=== PATIENT | female | born 1955 | race Caucasian/White ===

== ENCOUNTER → 2017-04-04 | Outpatient (CLI) | payer OTHER ==
[~2017-04-04] MED LIST: ALPR1 PO; CLON.1 PO; DESMOPRESSIN PO; FAMO20 PO; PROACE100 PO; WARF5 PO; ZOLP10 PO; [UNRECOGNIZED DRUG - REMARK]
== END ==
LOC: LAB 10:00
DX: N39.0 Urinary tract infection, site not specified (principal); R56.9 Unspecified convulsions
CPT/HCPCS: 87086

== ENCOUNTER → 2017-07-24 | Outpatient (CLI) | payer OTHER | LOC: LAB SHORT 10:25 → LAB 10:25 | PROVIDERS: Nurse Practitioner Family | DX: Z01.419 Encounter for gynecological examination (general) (routine) without abnormal findings (principal); N95.2 Postmenopausal atrophic vaginitis; N95.9 Unspecified menopausal and perimenopausal disorder | CPT/HCPCS: 87624; G0145 ==

== ENCOUNTER 2018-05-18 11:45 | Emergency (ER) | payer BC, MEDICARE ==
[~2018-05-18] VITALS: Ht 157.5 cm; Wt 48.5 kg
[2018-05-18] MEDS ORDERED: HYDCHL25 PO (12:56)
[2018-05-18] MEDS ORDERED: DIVA500ER PO (12:56)
[2018-05-18] MEDS ORDERED: WARF2 PO (12:56)
== END 2018-05-18 13:12 | disposition home or self-care (01) ==
LOC: ER 11:45
DX: S09.90XA Unspecified injury of head, initial encounter (principal); W19.XXXA Unspecified fall, initial encounter; Z88.8 Allergy status to other drugs, medicaments and biological substances; Z79.899 Other long term (current) drug therapy; Z79.01 Long term (current) use of anticoagulants; Z86.73 Personal history of transient ischemic attack (TIA), and cerebral infarction without residual deficits
CPT/HCPCS: 70450; 99284-25

== ENCOUNTER 2018-08-28 20:09 | Emergency (ER) | payer MEDICARE ==
[~2018-08-28] VITALS: Ht 154.9 cm; Wt 45.4 kg
[~2018-08-28 20:09] MED LIST changes: +DIVA500ER PO; +HYDCHL25 PO; +WARF2 PO
[2018-08-28] MEDS ORDERED: Prednisone20 MG PO (20:36)
[2018-08-28] MEDS ORDERED: CEPH500 PO (20:50)
== END 2018-08-28 20:45 | disposition home or self-care (01) ==
LOC: ER 20:09
DX: S50.362A Insect bite (nonvenomous) of left elbow, initial encounter (principal); W57.XXXA Bitten or stung by nonvenomous insect and other nonvenomous arthropods, initial encounter; L23.89 Allergic contact dermatitis due to other agents; Z91.018 Allergy to other foods; Z79.899 Other long term (current) drug therapy; Z79.01 Long term (current) use of anticoagulants; Z86.73 Personal history of transient ischemic attack (TIA), and cerebral infarction without residual deficits
CPT/HCPCS: 99281; J7512; Q0163

== ENCOUNTER → 2019-10-19 | Outpatient (CLI) | payer MEDICARE ==
[~2019-10-19] MED LIST changes: +CEPH500 PO; +Prednisone20 MG PO
== END ==
LOC: LAB SHORT 12:16 → LAB 12:16
DX: I10 Essential (primary) hypertension (principal)
CPT/HCPCS: 82043

== ENCOUNTER 2019-11-19 15:39 | Emergency (ER) | payer MEDICARE ==
[~2019-11-19] VITALS: Ht 157.5 cm; Wt 47.6 kg
[2019-11-19 16:28] LABS: Valproic Acid 108.5 ug/mL (50.0-100.0)
[2019-11-19 20:30] LABS: Source, Urine Clean Catch
[2019-11-19 20:34] LABS: Appearance, Urine Clear (Clear); Bilirubin, Urine Neg (Neg); Blood, Urine 1+ (Neg); Color, Urine Yellow (P-Yellow); Glucose Qualitative, Urine Neg (Neg); Ketones, Urine 1+ (Neg); Leukocyte Esterase, Urine Neg (Neg); Nitrite, Urine Neg (Neg); Protein, Urine Neg (Neg); Specific Gravity, Urine 1.015 (1.003-1.022); Urobilinogen, Urine NORM (Normal); pH, Urine 6.5 (5.0-8.0)
[2019-11-19 20:45] LABS: Calcium, Ionized (POC) 1.06 mmol/L (1.10-1.46); Chloride (POC) 100 mmol/L (98-108); Glucose (ISTAT POC) 111 mg/dL (70-99); Hemoglobin (POC) 10.5 g/dL (12.0-16.0); Potassium (POC) 3.7 mmol/L (3.5-5.5); Sodium (POC) 135 mmol/L (135-148); Total CO2 (POC) 24 mmol/L (21-32)
[2019-11-19 20:46] LABS: Bacteria Rare /hpf; Red Blood Cells, Urine 0-2 /hpf (0-2); Squamous Epithelial Cells Not Seen /hpf (Few); White Blood Cells, Urine 0-2 /hpf (0-5)
== END 2019-11-19 21:32 | disposition home or self-care (01) ==
LOC: ER 15:39
PROVIDERS: Emergency Medicine; Physician Assistant
DX: R56.9 Unspecified convulsions (principal); Z86.73 Personal history of transient ischemic attack (TIA), and cerebral infarction without residual deficits; Z79.01 Long term (current) use of anticoagulants; Z79.899 Other long term (current) drug therapy; Z79.52 Long term (current) use of systemic steroids; Z91.018 Allergy to other foods
CPT/HCPCS: 36415; 73030; 80047; 80164; 81001; 85014; 99284-25

== ENCOUNTER 2019-11-22 18:50 | Emergency (ER) | payer MEDICARE ==
[~2019-11-22] VITALS: Ht 154.9 cm; Wt 47.6 kg
== END 2019-11-22 21:57 | disposition home or self-care (01) ==
LOC: ER 18:50
DX: S00.03XA Contusion of scalp, initial encounter (principal); Z79.01 Long term (current) use of anticoagulants; Z79.52 Long term (current) use of systemic steroids; Z88.8 Allergy status to other drugs, medicaments and biological substances; Z86.73 Personal history of transient ischemic attack (TIA), and cerebral infarction without residual deficits; Z91.018 Allergy to other foods; Z86.718 Personal history of other venous thrombosis and embolism; W19.XXXA Unspecified fall, initial encounter
CPT/HCPCS: 70450; 99283-25

== ENCOUNTER 2020-08-20 11:11 | Inpatient (IN) | payer MEDICARE ==
[~2020-08-20] VITALS: Ht 165.1 cm; Wt 61.2 kg
[2020-08-20 12:13] LABS: BASOPHILS ABSOLUTE AUTO 0.02 K/mm3 (0.00-0.23); BASOPHILS PERCENT AUTO 1 % (0-2); EOSINOPHILS ABSOLUTE AUTO 0.13 K/mm3 (0.00-0.68); EOSINOPHILS PERCENT AUTO 4 % (0-6); Hematocrit 31.7 % (33.0-51.0); Hemoglobin 10.6 g/dL (11.5-16.0); IMMATURE GRAN ABSOLUTE AUTO 0.02 K/mm3 (0.00-0.10); IMMATURE GRAN PERCENT AUTO 1 % (0-1); LYMPHOCYTES ABSOLUTE AUTO 0.72 K/mm3 (0.84-5.20); LYMPHOCYTES PERCENT AUTO 20 % (21-46); MONOCYTES ABSOLUTE AUTO 0.44 K/mm3 (0.16-1.47); MONOCYTES PERCENT AUTO 12 % (4-13); Mean Corpuscular HGB 31.5 pg (26.0-34.0); Mean Corpuscular HGB Conc 33.4 g/dL (31.5-36.5); Mean Corpuscular Volume 94 fL (80-100); Mean Platelet Volume 10.6 fL (9.1-12.4); NEUTROPHILS ABSOLUTE AUTO 2.27 K/mm3 (1.96-9.15); NEUTROPHILS PERCENT AUTO 63 % (41-73); Platelet Count 66 K/mm3 (150-400); RDW Coefficient Variation 12.1 % (11.7-14.2); RDW Standard Deviation 42.4 fL (35.1-46.3); Red Blood Cell Count 3.36 M/mm3 (3.80-5.20)
[2020-08-20 12:15] LABS: Alanine Aminotransfer (ALT/SGP 23 U/L (12-78); Albumin, Blood 2.6 g/dL (3.4-5.0); Albumin/Globulin Ratio 0.7 (0.8-1.8); Alk Phos 39 U/L (50-136); Anion Gap 4 mmol/L (6-16); Aspartate Aminotrans (AST/SGOT 30 U/L (12-37); Bilirubin, Total 0.3 mg/dL (0.1-1.0); Blood Urea Nitrogen 31 mg/dL (8-24); Bun/Creatinine Ratio 39.1 (12.0-20.0); CO2, Blood 31 mmol/L (21-32); Calcium, Blood 8.5 mg/dL (8.5-10.1); Chloride, Blood 100 mmol/L (98-108); Creatinine, Blood 0.79 mg/dL (0.40-1.00); Globulin, Blood 3.5 g/dL (2.2-4.0); Glomerular Filtration Rate >60 (60-); Glucose, Blood 98 mg/dL (70-99); Potassium, Blood 4.1 mmol/L (3.5-5.5); Sodium, Blood 135 mmol/L (136-145); Total Protein, Blood 6.1 g/dL (6.4-8.2)
[2020-08-20] MEDS ORDERED: ELIQUIS5 M2 PO (12:22)
[2020-08-20 17:18] LABS: Valproic Acid 112.4 ug/mL (50.0-100.0)
--- NOTE | 2020-08-20 18:53 | NUR ---
Transfer to unit Received report from NACHO Noel-RN. Patient arrived to unit via NI deleon transfer to bed. NS @ 200 infusing. Personal belongings and snack bag arrived with patient, no family members present. Settled to room, slow to respond and appears to have delayed processing of information. A/O. Settled to room, bed in lowest position, education provided edi consultant light use, bed alarm on until safety can be determined. Will hand off report to night RN.
--- NOTE | 2020-08-20 19:40 | NUR ---
64 YR OLD FEMALE ADMITTED TO FLOOR AT SHIFT COMMENCE. DX OF CVA, HX OF CVA'S. NOTE SLOW SPEECH. DENIES LOSS OF FEELING. RIGHT FACIAL DROOP. IVF INFUSING. ORIENTED TO USE OF CALL LIGHT. BED ALARM ON. CALL LIGHT IN REACH
--- NOTE | 2020-08-21 04:16 | NUR ---
MARKETING DIRECTOR ASSISTED LIVING SUMMARY WAS ADMITTED AT SHIFT COMMENCE WITH CVA - SEE DOCUMENTATION RE ED ASSESSMENTS. HX CVA/TIA. NOTE RIGHT FACIAL DROOP. UP TO THE BATHROOM A FEW TIMES WITH ASSIST, IVF OF NS INFUSING AT 100 ML/HR. DAUGHTER (ALSO AGRICULTURAL COMMODITIES GRADER AND POA) IN ROOM AT BEDSIDE. HAS BEEN RESTING QUIETLY WITH NO NOTED ACUTE DISTRESS OTHERWISE. CALL LIGHT IN REACH
[2020-08-21 04:49] LABS: BASOPHILS ABSOLUTE AUTO 0.01 K/mm3 (0.00-0.23); BASOPHILS PERCENT AUTO 0 % (0-2); EOSINOPHILS ABSOLUTE AUTO 0.08 K/mm3 (0.00-0.68); EOSINOPHILS PERCENT AUTO 1 % (0-6); Hematocrit 36.7 % (33.0-51.0); Hemoglobin 12.4 g/dL (11.5-16.0); IMMATURE GRAN ABSOLUTE AUTO 0.01 K/mm3 (0.00-0.10); IMMATURE GRAN PERCENT AUTO 0 % (0-1); LYMPHOCYTES ABSOLUTE AUTO 0.44 K/mm3 (0.84-5.20); LYMPHOCYTES PERCENT AUTO 7 % (21-46); MONOCYTES PERCENT AUTO 12 % (4-13); Mean Corpuscular HGB 31.7 pg (26.0-34.0); Mean Corpuscular HGB Conc 33.8 g/dL (31.5-36.5); Mean Corpuscular Volume 94 fL (80-100); NEUTROPHILS PERCENT AUTO 80 % (41-73); RDW Coefficient Variation 12.2 % (11.7-14.2); RDW Standard Deviation 41.8 fL (35.1-46.3); Red Blood Cell Count 3.91 M/mm3 (3.80-5.20); White Blood Cell Count 6.64 K/mm3 (4.00-11.30)
[2020-08-21 04:51] LABS: Mean Platelet Volume 12.4 fL (9.1-12.4); Platelet Count 54 K/mm3 (150-400)
[2020-08-21 06:52] LABS: Alanine Aminotransfer (ALT/SGP 26 U/L (12-78); Albumin, Blood 2.8 g/dL (3.4-5.0); Albumin/Globulin Ratio 0.7 (0.8-1.8); Alk Phos 46 U/L (50-136); Anion Gap 5 mmol/L (6-16); Aspartate Aminotrans (AST/SGOT 27 U/L (12-37); Bilirubin, Total 0.4 mg/dL (0.1-1.0); Blood Urea Nitrogen 22 mg/dL (8-24); Bun/Creatinine Ratio 28.7 (12.0-20.0); CO2, Blood 29 mmol/L (21-32); Chloride, Blood 101 mmol/L (98-108); Cholesterol 255 mg/dL (50-200); Creatinine, Blood 0.77 mg/dL (0.40-1.00); Globulin, Blood 3.8 g/dL (2.2-4.0); Glomerular Filtration Rate >60 (60-); Glucose, Blood 86 mg/dL (70-99); Potassium, Blood 4.1 mmol/L (3.5-5.5); Sodium, Blood 135 mmol/L (136-145); Total Protein, Blood 6.6 g/dL (6.4-8.2); Triglycerides 82 mg/dL (30-160); Very Low Density Lipoprot Chol 16 mg/dL (6-32)
[2020-08-21 07:09] LABS: CHOL/HDL RATIO 3.2; HDL Cholesterol 80 mg/dL (>39); Low Density Lipoprotein Chol 159 mg/dL (0-110)
[2020-08-21 15:08] LABS: Source, Urine Clean Catch
[2020-08-21 15:11] LABS: Appearance, Urine Clear (Clear); Bilirubin, Urine Neg (Neg); Blood, Urine Neg (Neg); Color, Urine Yellow (P-Yellow); Glucose Qualitative, Urine Neg (Neg); Ketones, Urine 1+ (Neg); Leukocyte Esterase, Urine 1+ (Neg); Nitrite, Urine Neg (Neg); Protein, Urine 2+ (Neg); Specific Gravity, Urine 1.015 (1.003-1.022); Urobilinogen, Urine 1+ (Normal)
[2020-08-21 15:30] LABS: Bacteria Mod /hpf; Hyaline Casts 0-2 /lpf (0-2); Red Blood Cells, Urine Not Seen /hpf (0-2); Squamous Epithelial Cells Few /hpf (Few)
[2020-08-21 15:31] LABS: Mucus Mod (0-Heavy)
--- NOTE | 2020-08-21 16:41 | NUR ---
Spiritual care note: Mrs. Harris appears quite debilitated. She nodded yes to prayer and held my hand tightly. She had trouble speaking. Her dtr was asleep in recliner and did not awaken. I will remain available.
--- NOTE | 2020-08-21 19:40 | NUR ---
PT RESTING IN BED AFTER DINNER AND ASSIST TO RESTROOM. PT REMAINS ALERT AND ORIENTED X4 BUT SLOW TO RESPONS. DAUGHTERS AT BEDSIDE ALTERNATING SHIFTS. PT IV RUNNING AND WNL. NO C/O PAIN, SOB, OF CHEST PAIN THIS SHIFT. NEW ST ORDERS IN PLACE, UP AT 90 DEGREES, ASSISTANCE WITH MEALS AND ORAL CARE WITH SUCTION. BED IN LOW POSITION AND CALL LIGHT WITHIN REACH. STAFF WILL CONT TO MONITOR.
--- NOTE | 2020-08-22 04:46 | NUR ---
SHIFT SUMMARY: NO COMPLAINTS, NO ACUTE CHANGES. SBA TO BR. PT VOIDING WELL. SET OFF BED ALARM ONCE AND OTHER TIMES USED CALL LT APPROPRIATELY. TOOK MEDS ONE AT A TIME IN APPLESAUCE, NO CHOKING OR COUGHING NOTED. HOB ELEVATED SOME DURING SHIFT. SINUS RHYTHM ON TELE AT 70. WILL CONTINUE TO PROVIDE CARE UNTIL SHIFT REPORT.
[2020-08-22 05:16] LABS: BASOPHILS ABSOLUTE AUTO 0.02 K/mm3 (0.00-0.23); BASOPHILS PERCENT AUTO 0 % (0-2); EOSINOPHILS ABSOLUTE AUTO 0.16 K/mm3 (0.00-0.68); EOSINOPHILS PERCENT AUTO 3 % (0-6); Hematocrit 31.8 % (33.0-51.0); Hemoglobin 10.8 g/dL (11.5-16.0); IMMATURE GRAN ABSOLUTE AUTO 0.01 K/mm3 (0.00-0.10); IMMATURE GRAN PERCENT AUTO 0 % (0-1); LYMPHOCYTES ABSOLUTE AUTO 1.04 K/mm3 (0.84-5.20); LYMPHOCYTES PERCENT AUTO 17 % (21-46); MONOCYTES ABSOLUTE AUTO 0.63 K/mm3 (0.16-1.47); MONOCYTES PERCENT AUTO 10 % (4-13); Mean Corpuscular HGB 31.9 pg (26.0-34.0); Mean Corpuscular Volume 94 fL (80-100); Mean Platelet Volume 11.3 fL (9.1-12.4); NEUTROPHILS PERCENT AUTO 70 % (41-73); Platelet Count 64 K/mm3 (150-400); RDW Coefficient Variation 12.6 % (11.7-14.2); RDW Standard Deviation 43.1 fL (35.1-46.3); Red Blood Cell Count 3.39 M/mm3 (3.80-5.20); White Blood Cell Count 6.16 K/mm3 (4.00-11.30)
[2020-08-22 05:41] LABS: Alanine Aminotransfer (ALT/SGP 15 U/L (12-78); Albumin, Blood 1.9 g/dL (3.4-5.0); Albumin/Globulin Ratio 0.6 (0.8-1.8); Alk Phos 32 U/L (50-136); Anion Gap 2 mmol/L (6-16); Aspartate Aminotrans (AST/SGOT 20 U/L (12-37); Bilirubin, Total 0.3 mg/dL (0.1-1.0); Blood Urea Nitrogen 23 mg/dL (8-24); Bun/Creatinine Ratio 29.5 (12.0-20.0); CO2, Blood 28 mmol/L (21-32); Calcium, Blood 7.4 mg/dL (8.5-10.1); Chloride, Blood 109 mmol/L (98-108); Creatinine, Blood 0.78 mg/dL (0.40-1.00); Glomerular Filtration Rate >60 (60-); Glucose, Blood 80 mg/dL (70-99); Potassium, Blood 4.2 mmol/L (3.5-5.5); Sodium, Blood 139 mmol/L (136-145); Total Protein, Blood 4.9 g/dL (6.4-8.2)
--- NOTE | 2020-08-22 15:33 | NUR ---
Hand off - Midshift summary Received report from [facility] at 0910. Patient sitting in recliner having breakfast, daughters at bedside. Tele: SR 70's. NS @ 100. Denies pain, nausea, vomiting, diarrhea. Up to bathroom with contact guard assist. Calls appropriately for needs. Appetite is good. Ambulated in hallway with OPHTHALMIC ASST/gait belt, tolerated well. Worked with PT/OT. Awaiting discharge to inpatient rehab. Still having mild garbled speech. Report given to Kendall BRAGG.
--- NOTE | 2020-08-22 19:10 | NUR ---
PT IS RESTING IN HER CHAIR AFTER DINNER AND PM MEDICATION ADMIN. PT REMAINS ALERT AND ORIENTED X4, STAND BY ASSIST AND CONT. PT MADE NO C/O PAIN OR SOB AT THIS TIME. TO ALERT WITH TELE AND TREATED PER EMAR THIS SHIFT. BED IN LOW POSITION AND CALL LIGHT WITHIN REACH. STAFF WILL CONTINUE TO MONITOR.
--- NOTE | 2020-08-23 06:24 | NUR ---
SUMMARY PT HAD NO NEW ISSUES NOTED. PT HAS L SIDE WEAKNESS, R SIDE FACIAL DROOP. PT SOME DIFFICULTY WITH EVENING MEDS. PT HAD SOME DIFFICULTY SWALLOWING A PILL. PT WAS ABLE TO SWALLOW IT. PT C/O FEELING LIKE SHE HAD SOMETHING IN HER THROAT. PT WAS SUCTIONED AND ISSUE WAS RESOLVED. PT CURRENTLY SLEEPING IN NO DISTRESS. CALL LIGHT IN REACH.
--- NOTE | 2020-08-23 18:07 | NUR ---
SHIFT SUMMARY PT WORKED WITH PHYSICAL AND OCCUPATIONAL THERAPY THIS SHIFT. PT TOOK A SHOWER. CALLS APPROPRIATELY WHEN NEEDING ASSISTANCE. NO COMPLAINTS OF PAIN OR SHORTNESS OF BREATH. PT CHANGED TO PUREE DIET THIS AFTERNOON AND TOLERATING MUCH BETTER THAN THE MECHANICAL SOFT. NO ACUTE CHANGES AT THIS TIME. WAITING FOR PLACEMENT.
[2020-08-24 05:23] LABS: Hematocrit 30.6 % (33.0-51.0); Hemoglobin 10.2 g/dL (11.5-16.0); Mean Corpuscular HGB 31.3 pg (26.0-34.0); Mean Corpuscular HGB Conc 33.3 g/dL (31.5-36.5); Mean Corpuscular Volume 94 fL (80-100); Mean Platelet Volume 10.6 fL (9.1-12.4); Platelet Count 68 K/mm3 (150-400); RDW Coefficient Variation 12.5 % (11.7-14.2); RDW Standard Deviation 43.5 fL (35.1-46.3); Red Blood Cell Count 3.26 M/mm3 (3.80-5.20)
--- NOTE | 2020-08-24 05:25 | NUR ---
SUMMARY PT HAD NO NEW ISSUES NOTED. PT IS AMBULATING TO RESTROOM WELL. PT HAD NO COMPLAINTS. PT SLEPT T/O SHIFT. PT CURRENTLY SLEEPING IN NO DISTRESS. CALL LIGHT IN REACH.
[2020-08-24 06:02] LABS: Anion Gap 4 mmol/L (6-16); Blood Urea Nitrogen 16 mg/dL (8-24); Bun/Creatinine Ratio 21.9 (12.0-20.0); CO2, Blood 29 mmol/L (21-32); Calcium, Blood 7.5 mg/dL (8.5-10.1); Chloride, Blood 104 mmol/L (98-108); Creatinine, Blood 0.73 mg/dL (0.40-1.00); Ferritin, Serum 65 ng/mL (8-252); Glomerular Filtration Rate >60 (60-); Glucose, Blood 78 mg/dL (70-99); Iron Serum 29 ug/dL (50-170); Percent Saturation 12.5 % (15.0-50.0); Phosphorus, Blood 3.1 mg/dL (2.5-4.9); Potassium, Blood 4.1 mmol/L (3.5-5.5); Sodium, Blood 137 mmol/L (136-145); Total Iron Binding Capacity 232 ug/dL (250-450)
[2020-08-24 09:54] LABS: SARS-Cov-2 (COVID-19) PCR, MMC NEGATIVE (NEGATIVE)
--- NOTE | 2020-08-24 17:23 | NUR ---
SHIFT SUMMARY NO ACUTE CHANGES, A&O, VSS, COOPERATIVE c CARE. DAUGHTER CONCERNED THINKING PT HAD A SEIZURE THIS AFTERNOON, DAUGHTER STATED SHE WAS NOT SPEAKING WHEN SPOKEN TO, STARRING OFF, AND CLENCHING HER HANDS FOR APPROX 3 MINUTES WHICH IS WHAT HER SEIZURES HAVE LOOKED LIKE IN THE PAST. WHEN RN ARRIVED TO ROOM PT WAS A&O AND ABLE TO FOLLOW DIRECTION. TLAANG INFORMED AND HOME DOSE OF DEPAKOTE WAS ORDERED. PT CONTINUES TO HAVE FREQUENT STOOLS, STOOL SOFTENERS HELD. POSSIBLE DC TOMORROW, AWAITING INSURANCE APPROVAL FOR SNF. PT IS SITTING IN CHAIR WITH CHAIR ALARM ON AND CALL LIGHT WITHIN REACH. CALLS APPROPRAITELY FOR MOST PART.
[2020-08-25 05:22] LABS: Valproic Acid 81.4 ug/mL (50.0-100.0)
--- NOTE | 2020-08-25 16:42 | NUR ---
SHIFT SUMMARY NO ACUTE CHANGES, A&O, VSS, COOPERATIVE c CARE, GOOD ORAL INTAKE T/O SHIFT, AND AMBULATING WELL c SBA. PT DENIES ANY DISTRESS. DISCHARGING TO [facility] TOMORROW MORNING. PT CURRENTLY SITTING UP IN CHAIR VISITING DAUGHTER c CALL LIGHT WITHIN REACH. CALLS APPROPRIATELY, CHAIR ALARM ON.
--- NOTE | 2020-08-26 04:42 | NUR ---
SHIFT SUMMARY ASSUMED CARE OF PT AT 1900. PT IS A/OX4. HEART SOUNDS REGULAR, TELE SHOWS SINUS @ 69. LUNG SOUNDS CLEAR. PT IS A 1P ASSIT TO BATHROOM. PT WAS CONTIENT DURING THE NIGHT. PT HAS NO NEW COMPLAINTS. CALL LIGHT IN REACH, BED IN LOWEST POSTION.
[2020-08-26 06:36] LABS: SARS-Cov-2 (COVID-19) PCR, MMC NEGATIVE (NEGATIVE)
[2020-08-26] MEDS ORDERED: ATOR20 PO (08:47)
[2020-08-26] MEDS ORDERED: TRAZ100 PO (08:47)
[2020-08-26] MEDS ORDERED: GABA300 PO (08:47)
[2020-08-26] MEDS ORDERED: MIRALAX17 GM (08:48)
--- NOTE | 2020-08-26 19:11 | NUR ---
no rm in [place] for therapy, will continue to try to place, call light in reach, rm air, saline locked, stockings on legs, family distressed by were able to accept lack of transfer, bsr shared with noc nurse and pt
--- NOTE | 2020-08-27 04:48 | NUR ---
SHIFT SUMMARY ASSUMED CARE OF PT AT 1900. PT IS A/OX4. HEART SOUNDS REGULAR, LUNG SOUNDS CLEAR. PT WAS A 1P SBA WITH WALKER TO BATHROOM. PT WAS CONTINENT T/O THE NIGHT. PT HAS NO NEW COMPLAINTS. CALL LIGHT IN REACH, BED IN LOWEST POSTION.
--- NOTE | 2020-08-27 12:51 | NUR ---
PT complained of frequent bm, dr agreed to move dosate to prn per family request
--- NOTE | 2020-08-27 19:23 | NUR ---
call light in reach, neuro ck completed, sba in rm, walks in winkler with support, saline locked, rm air, sbar shared with returning noc nurse
[2020-08-27 22:04] LABS: SARS-Cov-2 (COVID-19) PCR, MMC NEGATIVE (NEGATIVE)
[2020-08-28 04:45] LABS: Hematocrit 32.9 % (33.0-51.0); Hemoglobin 11.3 g/dL (11.5-16.0); Mean Corpuscular HGB 31.3 pg (26.0-34.0); Mean Corpuscular HGB Conc 34.3 g/dL (31.5-36.5); Mean Corpuscular Volume 91 fL (80-100); Mean Platelet Volume 10.6 fL (9.1-12.4); Platelet Count 86 K/mm3 (150-400); RDW Coefficient Variation 11.8 % (11.7-14.2); RDW Standard Deviation 39.8 fL (35.1-46.3); Red Blood Cell Count 3.61 M/mm3 (3.80-5.20); White Blood Cell Count 4.59 K/mm3 (4.00-11.30)
[2020-08-28 05:00] LABS: Albumin, Blood 2.1 g/dL (3.4-5.0); Anion Gap 3 mmol/L (6-16); Blood Urea Nitrogen 21 mg/dL (8-24); Bun/Creatinine Ratio 27.6 (12.0-20.0); CO2, Blood 33 mmol/L (21-32); Calcium, Blood 8.2 mg/dL (8.5-10.1); Chloride, Blood 93 mmol/L (98-108); Creatinine, Blood 0.76 mg/dL (0.40-1.00); Glomerular Filtration Rate >60 (60-); Glucose, Blood 79 mg/dL (70-99); Phosphorus, Blood 3.8 mg/dL (2.5-4.9); Potassium, Blood 4.1 mmol/L (3.5-5.5); Sodium, Blood 129 mmol/L (136-145)
--- NOTE | 2020-08-28 06:23 | NUR ---
SHIFT SUMMARY ASSUMED CARE OF PT AT 1900. PT IS A/OX4. HEART SOUNDS REGULAR. LUNG SOUNDS CLEAR. PT WAS A SBA TO BATHROOM. PT WAS ONTIENT T/O THE NIGHT. COVID TEST RESULTS WERE FAXED TO AWAITING FACILITY. DAUGHTER ASKED TO BE CALLED BEFORE PT LEAVES. CALL LIGHT IN REACH, BED IN LOWEST POSTION, BED ALARM ON.
--- NOTE | 2020-08-28 12:54 | NUR ---
REPORT TO EMILY MORSE AT [facility]
--- NOTE | 2020-08-28 13:15 | NUR ---
CALLED EMILY MORSE AT [facility] FOR A CHANGE OF MEDICATION . HYDROCHOLOROTHIAZIDE STOP PER DR ROWLAND
--- NOTE | 2020-08-28 13:30 | NUR ---
PT DISCHARGE TO [facility]. IV DC'D. REPORT GIVEN TO MINI DIAZ WITH UPDATED MED LIST. DTR WAS ALSO EDUCATED ABOUT THE NEW MEDS AND DC'D MEDS PER . PT TRANSPORTED VIA [facility]. DENIES ANY OTHER CONCERNS.
== END 2020-08-28 13:35 | DRG 65 ==
LOC: ER 11:11 → ERHOLD 18:11 → MEDS 18:35
PROVIDERS: Emergency Medicine; Internal Medicine; ADMIT Internal Medicine
DX: I63.89 Other cerebral infarction (principal); G81.94 Hemiplegia, unspecified affecting left nondominant side; R47.1 Dysarthria and anarthria; R47.81 Slurred speech; R29.810 Facial weakness; D69.6 Thrombocytopenia, unspecified; Z20.822 Contact with and (suspected) exposure to COVID-19; I10 Essential (primary) hypertension; E78.5 Hyperlipidemia, unspecified; G40.909 Epilepsy, unspecified, not intractable, without status epilepticus; D53.9 Nutritional anemia, unspecified; R60.0 Localized edema; Z86.73 Personal history of transient ischemic attack (TIA), and cerebral infarction without residual deficits; Z79.01 Long term (current) use of anticoagulants; Z79.899 Other long term (current) drug therapy; Z79.52 Long term (current) use of systemic steroids; Z91.018 Allergy to other foods; Z86.718 Personal history of other venous thrombosis and embolism
CPT/HCPCS: 36415; 70450; 70544; 70551; 80053; 80061; 80069; 80164; 81001; 82607; 82728; 82746; 82947; 83540; 83550; 85025; 85027; 87086; 92523; 92526; 92610; 93005; 93010; 93306; 93880; 97110; 97112; 97116; 97129; 97130; 97162; 97166; 97530; 97535; 99285-25; A9270; G0378; J1940; J2060; J7030; U0004

== ENCOUNTER 2021-04-14 16:15 | Emergency (ER) | payer MEDICARE ==
[~2021-04-14] VITALS: Ht 157.5 cm; Wt 48.1 kg
[~2021-04-14 16:15] MED LIST changes: +ATOR20 PO; +ELIQUIS5 M2 PO; +GABA300 PO; +MIRALAX17 GM; +TRAZ100 PO
[2021-04-14] MEDS ORDERED: HYDCHL25 PO (17:17)
[2021-04-14] MEDS ORDERED: ALEN70 PO (17:19)
[2021-04-14 17:23] LABS: BASOPHILS ABSOLUTE AUTO 0.01 K/mm3 (0.00-0.23); BASOPHILS PERCENT AUTO 0 % (0-2); EOSINOPHILS ABSOLUTE AUTO 0.02 K/mm3 (0.00-0.68); EOSINOPHILS PERCENT AUTO 1 % (0-6); Hematocrit 31.3 % (33.0-51.0); Hemoglobin 10.7 g/dL (11.5-16.0); IMMATURE GRAN ABSOLUTE AUTO 0.01 K/mm3 (0.00-0.10); IMMATURE GRAN PERCENT AUTO 0 % (0-1); LYMPHOCYTES ABSOLUTE AUTO 0.96 K/mm3 (0.84-5.20); LYMPHOCYTES PERCENT AUTO 30 % (21-46); MONOCYTES ABSOLUTE AUTO 0.42 K/mm3 (0.16-1.47); MONOCYTES PERCENT AUTO 13 % (4-13); Mean Corpuscular HGB 32.3 pg (26.0-34.0); Mean Corpuscular HGB Conc 34.2 g/dL (31.5-36.5); Mean Corpuscular Volume 95 fL (80-100); Mean Platelet Volume 12.1 fL (9.1-12.4); NEUTROPHILS ABSOLUTE AUTO 1.74 K/mm3 (1.96-9.15); NEUTROPHILS PERCENT AUTO 55 % (41-73); Platelet Count 58 K/mm3 (150-400); RDW Coefficient Variation 12.5 % (11.7-14.2); RDW Standard Deviation 43.5 fL (35.1-46.3); Red Blood Cell Count 3.31 M/mm3 (3.80-5.20); White Blood Cell Count 3.16 K/mm3 (4.00-11.30)
[2021-04-14 17:39] LABS: Alanine Aminotransfer (ALT/SGP 20 U/L (12-78); Albumin, Blood 3.1 g/dL (3.4-5.0); Albumin/Globulin Ratio 0.9 (0.8-1.8); Alk Phos 45 U/L (50-136); Anion Gap 4 mmol/L (6-16); Aspartate Aminotrans (AST/SGOT 25 U/L (12-37); Bilirubin, Total 0.4 mg/dL (0.1-1.0); Blood Urea Nitrogen 32 mg/dL (8-24); Bun/Creatinine Ratio 43.7 (12.0-20.0); CO2, Blood 32 mmol/L (21-32); Calcium, Blood 8.5 mg/dL (8.5-10.1); Chloride, Blood 93 mmol/L (98-108); Creatinine, Blood 0.73 mg/dL (0.40-1.00); Globulin, Blood 3.3 g/dL (2.2-4.0); Glomerular Filtration Rate >60 (60-); Glucose, Blood 115 mg/dL (70-99); Potassium, Blood 3.8 mmol/L (3.5-5.5); Sodium, Blood 129 mmol/L (136-145); Total Protein, Blood 6.4 g/dL (6.4-8.2)
== END 2021-04-14 18:54 | disposition home or self-care (01) ==
LOC: ER 16:15
PROVIDERS: Physician Assistant
DX: S62.313A Displaced fracture of base of third metacarpal bone, left hand, initial encounter for closed fracture (principal); Z86.73 Personal history of transient ischemic attack (TIA), and cerebral infarction without residual deficits; Z79.01 Long term (current) use of anticoagulants; Z79.899 Other long term (current) drug therapy; Z91.018 Allergy to other foods; X58.XXXA Exposure to other specified factors, initial encounter
CPT/HCPCS: 36415; 70450; 73130; 80053; 85025; 93005; 93010; A9270

== ENCOUNTER 2021-05-24 16:21 | Emergency (ER) | payer MEDICARE, OTHER ==
[~2021-05-24] VITALS: Ht 160 cm; Wt 49.9 kg
[~2021-05-24 16:21] MED LIST changes: +ALEN70 PO
[2021-05-24 17:03] LABS: BASOPHILS ABSOLUTE AUTO 0.01 K/mm3 (0.00-0.23); BASOPHILS PERCENT AUTO 0 % (0-2); EOSINOPHILS ABSOLUTE AUTO 0.04 K/mm3 (0.00-0.68); EOSINOPHILS PERCENT AUTO 1 % (0-6); Hematocrit 27.9 % (33.0-51.0); Hemoglobin 9.4 g/dL (11.5-16.0); IMMATURE GRAN ABSOLUTE AUTO 0.01 K/mm3 (0.00-0.10); IMMATURE GRAN PERCENT AUTO 0 % (0-1); LYMPHOCYTES ABSOLUTE AUTO 0.64 K/mm3 (0.84-5.20); LYMPHOCYTES PERCENT AUTO 19 % (21-46); MONOCYTES ABSOLUTE AUTO 0.49 K/mm3 (0.16-1.47); MONOCYTES PERCENT AUTO 15 % (4-13); Mean Corpuscular HGB Conc 33.7 g/dL (31.5-36.5); Mean Corpuscular Volume 95 fL (80-100); Mean Platelet Volume 11.4 fL (9.1-12.4); NEUTROPHILS ABSOLUTE AUTO 2.15 K/mm3 (1.96-9.15); NEUTROPHILS PERCENT AUTO 64 % (41-73); Platelet Count 56 K/mm3 (150-400); RDW Coefficient Variation 13.1 % (11.7-14.2); RDW Standard Deviation 45.1 fL (35.1-46.3); Red Blood Cell Count 2.94 M/mm3 (3.80-5.20); White Blood Cell Count 3.34 K/mm3 (4.00-11.30)
[2021-05-24 17:12] LABS: Alanine Aminotransfer (ALT/SGP 25 U/L (12-78); Albumin, Blood 2.7 g/dL (3.4-5.0); Alk Phos 40 U/L (50-136); Anion Gap 5 mmol/L (6-16); Aspartate Aminotrans (AST/SGOT 24 U/L (12-37); Bilirubin, Total 0.3 mg/dL (0.1-1.0); Blood Urea Nitrogen 52 mg/dL (8-24); CO2, Blood 30 mmol/L (21-32); Calcium, Blood 8.4 mg/dL (8.5-10.1); Chloride, Blood 105 mmol/L (98-108); Creatinine, Blood 0.81 mg/dL (0.40-1.00); Globulin, Blood 2.8 g/dL (2.2-4.0); Glomerular Filtration Rate >60 (60-); Glucose, Blood 109 mg/dL (70-99); Potassium, Blood 3.9 mmol/L (3.5-5.5); Sodium, Blood 140 mmol/L (136-145); Total Protein, Blood 5.5 g/dL (6.4-8.2)
[2021-05-24 17:31] LABS: Source, Urine Clean Catch
[2021-05-24 17:36] LABS: Appearance, Urine Clear (Clear); Bilirubin, Urine Neg (Neg); Blood, Urine Neg (Neg); Color, Urine Yellow (P-Yellow); Glucose Qualitative, Urine Neg (Neg); Ketones, Urine 1+ (Neg); Leukocyte Esterase, Urine Neg (Neg); Nitrite, Urine Neg (Neg); Protein, Urine Neg (Neg); Urobilinogen, Urine NORM (Normal); pH, Urine 6.5 (5.0-8.0)
[2021-05-24 18:47] LABS: Influenza A, PCR NEGATIVE (NEGATIVE); Influenza B, PCR NEGATIVE (NEGATIVE); Resp Syncytial Virus, PCR NEGATIVE (NEGATIVE); SARS-Cov-2 (COVID-19) PCR, MMC NEGATIVE (NEGATIVE)
== END 2021-05-24 21:23 | disposition home or self-care (01) ==
LOC: ER 16:21
PROVIDERS: Emergency Medicine
DX: E86.0 Dehydration (principal); W01.10XA Fall on same level from slipping, tripping and stumbling with subsequent striking against unspecified object, initial encounter; Z91.018 Allergy to other foods; Z79.899 Other long term (current) drug therapy; Z20.822 Contact with and (suspected) exposure to COVID-19
CPT/HCPCS: 0241U; 36415; 51701; 70450; 71045; 80053; 81003; 84484; 85025; 93005; 93010; 99284-25

== ENCOUNTER 2021-05-31 13:43 | Inpatient (IN) | payer MEDICARE ==
[~2021-05-31] VITALS: Ht 157.5 cm; Wt 49.8 kg
[2021-05-31 14:49] LABS: BASOPHILS ABSOLUTE AUTO 0.02 K/mm3 (0.00-0.23); BASOPHILS PERCENT AUTO 1 % (0-2); EOSINOPHILS ABSOLUTE AUTO 0.06 K/mm3 (0.00-0.68); EOSINOPHILS PERCENT AUTO 2 % (0-6); Hematocrit 22.6 % (33.0-51.0); Hemoglobin 7.3 g/dL (11.5-16.0); IMMATURE GRAN ABSOLUTE AUTO 0.02 K/mm3 (0.00-0.10); IMMATURE GRAN PERCENT AUTO 1 % (0-1); LYMPHOCYTES ABSOLUTE AUTO 0.55 K/mm3 (0.84-5.20); LYMPHOCYTES PERCENT AUTO 15 % (21-46); MONOCYTES ABSOLUTE AUTO 0.55 K/mm3 (0.16-1.47); MONOCYTES PERCENT AUTO 15 % (4-13); Mean Corpuscular HGB 31.7 pg (26.0-34.0); Mean Corpuscular HGB Conc 32.3 g/dL (31.5-36.5); Mean Corpuscular Volume 98 fL (80-100); Mean Platelet Volume 11.1 fL (9.1-12.4); NEUTROPHILS PERCENT AUTO 68 % (41-73); Platelet Count 113 K/mm3 (150-400); RDW Standard Deviation 49.5 fL (35.1-46.3)
[2021-05-31 14:51] LABS: Alanine Aminotransfer (ALT/SGP 23 U/L (12-78); Albumin, Blood 2.7 g/dL (3.4-5.0); Albumin/Globulin Ratio 0.8 (0.8-1.8); Alk Phos 46 U/L (50-136); Anion Gap 7 mmol/L (6-16); Aspartate Aminotrans (AST/SGOT 24 U/L (12-37); Bilirubin, Total 0.8 mg/dL (0.1-1.0); Blood Urea Nitrogen 32 mg/dL (8-24); Bun/Creatinine Ratio 36.1 (12.0-20.0); CO2, Blood 29 mmol/L (21-32); Chloride, Blood 105 mmol/L (98-108); Creatinine, Blood 0.89 mg/dL (0.40-1.00); Globulin, Blood 3.2 g/dL (2.2-4.0); Glomerular Filtration Rate >60 (60-); Glucose, Blood 125 mg/dL (70-99); Potassium, Blood 4.2 mmol/L (3.5-5.5); Sodium, Blood 141 mmol/L (136-145); Total Protein, Blood 5.9 g/dL (6.4-8.2)
[2021-05-31 15:59] LABS: Source, Urine Straight Cath
[2021-05-31 16:31] LABS: Appearance, Urine Clear (Clear); Bilirubin, Urine Neg (Neg); Blood, Urine Neg (Neg); Color, Urine Yellow (P-Yellow); Glucose Qualitative, Urine Neg (Neg); Ketones, Urine Neg (Neg); Leukocyte Esterase, Urine Neg (Neg); Nitrite, Urine Neg (Neg); Protein, Urine Neg (Neg); Specific Gravity, Urine 1.015 (1.003-1.022); Urobilinogen, Urine 1+ (Normal); pH, Urine 6.5 (5.0-8.0)
[2021-05-31 16:36] LABS: Valproic Acid 86.4 ug/mL (50.0-100.0)
--- NOTE | 2021-05-31 18:34 | NUR ---
PT ADMITTED TO MEDICAL AT 1820. DAUGHTER AT BEDSIDE, PROVIDED UPDATED MEDICATION LIST, MED REC DONE. VSS, WT 49.6. PT HAS SLURRED SPEECH, HX OF STROKE, SEIZURES, RECURRENT FALLS. SPEECH SLURRED, DAUGHTER REPORTS SLURRED SPEECH IS WORSE TODAY. PT SLURRED/SPEECH DELAYED BUT ABLE TO ANSWER QUESTIONS. AOX4.
--- NOTE | 2021-05-31 18:59 | NUR ---
CARDIAC DIET ORDERED, PT UNABLE TO CHEW/SWALLOW. PT WILL BE NPO TONIGHT, AND ORDERED BUSINESS EDUCATION INSTRUCTOR FOR AM.
[2021-05-31 21:04] LABS: Hematocrit 21.6 % (33.0-51.0); Hemoglobin 7.2 g/dL (11.5-16.0)
[2021-05-31 21:46] LABS: CPK Creatine Kinase 205 U/L (26-193); Ferritin, Serum 50 ng/mL (8-252); Iron Serum 57 ug/dL (50-170); Percent Saturation 18.4 % (15.0-50.0); Total Iron Binding Capacity 309 ug/dL (250-450); Valproic Acid 70.7 ug/mL (50.0-100.0)
[2021-06-01 05:42] LABS: Hematocrit 23.2 % (33.0-51.0); Hemoglobin 7.6 g/dL (11.5-16.0); Mean Corpuscular HGB 31.9 pg (26.0-34.0); Mean Corpuscular HGB Conc 32.8 g/dL (31.5-36.5); Mean Corpuscular Volume 98 fL (80-100); Platelet Count 121 K/mm3 (150-400); RDW Coefficient Variation 14.3 % (11.7-14.2); RDW Standard Deviation 49.1 fL (35.1-46.3); Red Blood Cell Count 2.38 M/mm3 (3.80-5.20); White Blood Cell Count 6.32 K/mm3 (4.00-11.30)
[2021-06-01 06:47] LABS: Anion Gap 8 mmol/L (6-16); Blood Urea Nitrogen 24 mg/dL (8-24); Bun/Creatinine Ratio 33.1 (12.0-20.0); CO2, Blood 27 mmol/L (21-32); Calcium, Blood 8.1 mg/dL (8.5-10.1); Chloride, Blood 107 mmol/L (98-108); Creatinine, Blood 0.72 mg/dL (0.40-1.00); Glomerular Filtration Rate >60 (60-); Glucose, Blood 94 mg/dL (70-99); Potassium, Blood 3.6 mmol/L (3.5-5.5); Sodium, Blood 142 mmol/L (136-145)
--- NOTE | 2021-06-01 06:48 | NUR ---
SHIFT SUMMARY PT IS A 65 Y/O FEMALE, ADMITTED FOR R HIP HEMATOMA AND POSSIBLE CVA. SHE IS A&O X 2, WITH SLURRED SPEECH THAT NOTICEABLY WORSENED DURING THE NIGHT. AT START OF SHIFT, DAY SHIFT RN REPORTED THAT PT COULD NOT UNDERSTAND HOW TO CHEW OR SWALLOW FOOD, ONLY STUFFING FOOD IN HER MOUTH. HOSPITALIST DR CAMERON WAS NOTIFIED, AND PT MADE NPO AND SPEECH THERAPY EVAL ORDERED. THIS AM, PT SATS WERE FOUND TO BE IN THE 70S ON RA, DECREASED FROM 94% ON RA AT START OF SHIFT. PT ALSO SOUNDED GURGLY. PT WAS INITIALLY PLACED ON 15L NONREBREATHER TO BRING HER SATS UP INTO THE 90S, AND THEN TITRATED DOWN TO 4L HUMIDIFIED O2 OVER THE REST OF THE SHIFT. ALL OTHER VITALS STABLE. NO C/O ACUTE PAIN, NAUSEA OR SOB. NO OTHER ACUTE CHANGES IN PT CONDITION NOTED DURING THE NIGHT. WILL CONTINUE TO MONITOR AND TREAT PER EMAR UNTIL HAND OFF TO DAY SHIFT RN.
--- NOTE | 2021-06-01 18:29 | NUR ---
Pt evaluated by PT/BUNDLER SEASONAL GREENERY, recommended dangle edge of bed with mod/max assist, BUNDLER SEASONAL GREENERY ordered NPO. Pt unable to make eye contact, follow commands pt gaze drifting. Pt able to lift right arm/move fingers, able to left left arm, but unable to move hand/fingers, she can flex/extend feet but cannot lift legs. Pts family requesting vitamin bag, PICC, lawson cath for patients comfort. MD awaiting MRI, to determine further treatment. Pt on 4L O2 NC during the night to maintain sats. Tirated pt down to RA, pt left at 1300 for MRI, when pt returned she was desating to 87%, placed 2L O2. Moderate amount of oral secretions, placed pt in side lying position, and suctioned. continued to reposition/ suction this evening the pt desating to 84-82% on 2L O2. Called RT for a deep suction. RT began suctioning and called in RN, RT said they suctioned a large white mucus plug, and then pt began bleeding, continous bloody secretions were suctioned. Called MD Deluna immediatly came to the bedside, MD gave verbal orders for STAT H/H, and fluid bolus. Notified air tank assembler and rapid response was called. Tele notifed RN that patient was tachy. Fluid bolus stopped. Pt assessed by rapid team and transferred to ICU.
[2021-06-01 18:35] LABS: Hemoglobin 8.6 g/dL (11.5-16.0)
[2021-06-01 18:53] LABS: Hematocrit 18.4 % (33.0-51.0); Mean Corpuscular HGB 32.3 pg (26.0-34.0); Mean Corpuscular HGB Conc 32.6 g/dL (31.5-36.5); Mean Corpuscular Volume 99 fL (80-100); Mean Platelet Volume 10.4 fL (9.1-12.4); Platelet Count 95 K/mm3 (150-400); RDW Coefficient Variation 14.6 % (11.7-14.2); RDW Standard Deviation 51.7 fL (35.1-46.3); Red Blood Cell Count 1.86 M/mm3 (3.80-5.20); White Blood Cell Count 5.93 K/mm3 (4.00-11.30)
[2021-06-01 19:08] LABS: International Normalized Ratio 1.31; Prothrombin Time Results 13.5 Sec (9.7-11.5)
--- NOTE | 2021-06-01 19:13 | NUR ---
ASSUMED CARE OF PT UPON ARRIVAL TO ICU 8 AT 1824. PT TRANSFERRED TO ICU 8 AFTER RAPID RESPONSE CALLED FOR LOW SP02 AND ALTERED LOC. PT ARRIVED ACCOMPANIED BY JOANIE RN WHO PROVIDED BEDSIDE REPORT. DR GARCIA AT BEDSIDE TO PREPARE FOR RSI. RSI IS FOLLOWS 1828 4 MG VERSED GIVEN IV 182 50 MG PROPOFOL GIVEN IV SP02 88% BAGGING WITH BMV 183 SUCCESSFUL INTUBATION WITH 7.5 CM ETT, 25 CM AT TEETH. PLACEMENT VERIFIED WITH AUSCULATATION OF BILATERAL BREATH SOUNDS AND POSITIVE COLOR CHANGE ON COLORMETRIC CO2 DETECTOR. 183 1 L NS BOLUS STARTED 1840 ADDITIONAL 40 MG PROPOFOL GIVEN PT BEGINNING TO AWAKEN 1843 OG TUBE SUCCESSFULLY PLACED, TEMP GUTIERRES SUCCESSFULLY PLACED OG TUBE AND ET TUBE PLACEMENT CONFIRMED BY XRAY READ BY DR GARCIA. PER DR GARCIA AND DR BLOUNT, PROTAMINE TO BE HELD. PER DR BLOUNT, HOLD ORDERED FFP. REPORT GIVEN TO ONCOMING RN TO ASSUME CARE, ALESSANDRO.
[2021-06-01 19:15] LABS: Source, Urine Foley catheter
[2021-06-01 19:22] LABS: Appearance, Urine Clear (Clear); Bilirubin, Urine Neg (Neg); Blood, Urine Neg (Neg); Color, Urine Amber (P-Yellow); Glucose Qualitative, Urine Neg (Neg); Ketones, Urine 2+ (Neg); Leukocyte Esterase, Urine Neg (Neg); Nitrite, Urine Neg (Neg); Protein, Urine 2+ (Neg); Urobilinogen, Urine 2+ (Normal)
[2021-06-01 19:38] LABS: Bacteria Few /hpf; Red Blood Cells, Urine 0-2 /hpf (0-2); Squamous Epithelial Cells Few /hpf (Few); White Blood Cells, Urine 0-2 /hpf (0-5)
[2021-06-01 20:03] LABS: PCO2 Arterial 37.6 mmHg (35-45); PO2 Arterial 76.1 mmHg (80-100); pH Blood Arterial 7.43 (7.35-7.45)
--- NOTE | 2021-06-01 21:56 | NUR ---
ASSUMED CARE AT 1900 PT LAYING IN BED JUST RECENTLY INTUBATED WITH VENT SETTINGS AC/VC 16/350/5/35%. PROPOFOL ON SB BUT PT STARTING TO LOOK UNCOMFORTABLE, PULLING AT RESTRAINTS AND GRIMICING; PROPOFOL STARTED AT 20MCG/KG/MIN. HR 70-80'S. BP STABLE. OG IN PLACE. GUTIERRES IN PLACE AND DRAINING TO GRAVITY. LARGE BRUISE TO RT HIP NOTED. PT DAUGHTERS ARRIVED TO UNIT AROUND 193 AND WAS UNAWARE OF PT CHANGE IN CONDITION REQUIRING INTUBATION. BOTH DAUGHTER EXPRESSED THAT THEY HAD A CONVERSATION WITH DR BLOUNT EARLIER TODAY THAT THE PATIENT WOULD NOT WANT TO BE INTUBATED IF IT CAME TO THAT. BOTH DAUGHTERS UPSET ABOUT THE INTUBATION BUT POLITE WITH STAFF. THEY REQUEST TO TALK TO THE HOSPITALIST OR CASE MANAGMENT. DR GARCIA ON THE FLOOR AND AVAILABLE TO TALK TO FAMILY. AFTER DISCUSSION WITH DR GARCIA, PT IS NOW A DNR AND CONT VENT SUPPORT AT THIS TIME SO THAT OTHER FAMILY MEMBERS CAN COME SAY GOODBYE. BOTH DAUGHTERS TEARFUL AT DECISION BUT UNDERSTANDING OF THE SITUATION. ADDITIONAL FAMILY TO VISIT APPROVED WITH BUSINESS LAW PROFESSOR.
--- NOTE | 2021-06-02 00:42 | NUR ---
EXTUBATION PT DAUGHTERS NOTIFIED STAFF THAT THEY WERE READY TO HAVE PT EXTUBATED. DR GARCIA CALLED AND PROVIDED ORDERS FOR EXTUBATION FOLLOWED BY COMFORT CARE ORDERS. PNTB NOTIFIED. PT EXTUBATED WITH DAUGHTER BASILIA IN ROOM AT 2345. OG REMOVED ALSO. PROPOFOL STOPPED, NS STOPPED. PRN ATIVAN AND ROXANOL GIVEN. DAUGHTER CONT TO BE AT BEDSIDE.
--- NOTE | 2021-06-02 05:45 | NUR ---
END OF SHIFT SUMMARY PT TOLERATING SINCE EXTUBATION. DAUGHTER CONT TO BE AT BEDSIDE ALL NIGHT. GAVE ROXANOL TWICE FOR AIR HUNGER, ATIVAN ONCE RIGHT AFTER EXTUBATION. PT APPEARS COMFORTABLE AND NOT IN DISTRESS. WILL REPORT TO AM RN WHEN AVAILABLE.
--- NOTE | 2021-06-02 17:37 | NUR ---
PT DAUGHTER BASILIA LOST OLIVER EARRING WHILE VISITING PT. STAFF WENT THROUGH [employer]AGS AND SHOOK THEM OUT, SEARCHED UNDER HOSPITAL BED WITH FLASHLIGHT AND CHAIR THAT BASILIA WAS SITTING IN. WE DID NOT SEE THE EARRING DURING POST MORTOM CARE WELL. IF FOUND BASILIA CAN BE REACHED AT [phone]
--- NOTE | 2021-06-02 17:41 | NUR ---
EARRING FOUND AND IN KELLIES POSESSION
== END 2021-06-02 17:46 | DRG 208 ==
LOC: ER 13:43 → MEDS 13:44 → ICUE 06-01 14:06 → MEDS 06-01 14:06 → ICUE 06-01 18:18
PROVIDERS: Emergency Medicine; Internal Medicine Critical Care Medicine; ADMIT Internal Medicine
PROC: 0BH18EZ Insertion of Endotracheal Airway into Trachea, Via Natural or Artificial Opening Endoscopic (ICD-10-PCS; principal; 2021-06-01)
PROC: 5A1935Z Respiratory Ventilation, Less than 24 Consecutive Hours (ICD-10-PCS; 2021-06-01)
PROC: 3E03329 Introduction of Other Anti-infective into Peripheral Vein, Percutaneous Approach (ICD-10-PCS; 2021-06-01)
DX: J96.01 Acute respiratory failure with hypoxia (principal); I63.9 Cerebral infarction, unspecified; J69.0 Pneumonitis due to inhalation of food and vomit; D62 Acute posthemorrhagic anemia; D68.61 Antiphospholipid syndrome; S70.01XA Contusion of right hip, initial encounter; Z66 Do not resuscitate; Z78.1 Physical restraint status; W18.30XA Fall on same level, unspecified, initial encounter; R13.10 Dysphagia, unspecified; R29.6 Repeated falls; D69.6 Thrombocytopenia, unspecified; E78.5 Hyperlipidemia, unspecified; G62.9 Polyneuropathy, unspecified; E86.0 Dehydration; Z51.5 Encounter for palliative care; Z86.718 Personal history of other venous thrombosis and embolism; Z79.899 Other long term (current) drug therapy; Z86.73 Personal history of transient ischemic attack (TIA), and cerebral infarction without residual deficits
CPT/HCPCS: 31500; 31720; 36415; 36600; 51702; 70450; 70551; 71045; 73701; 80048; 80053; 80164; 81001; 81003; 82272; 82550; 82607; 82728; 82746; 82803; 83540; 83550; 85014; 85018; 85025; 85027; 85610; 85730; 86850; 86900; 86901; 87070; 87205; 92610; 93005; 93010; 94002; 94640; 94760; 97161; 97530; 99285-25; A9270; G0378; J0295; J1650; J2060; J2250; J2704; J7030; J7050; P9612; Q9967